=== PATIENT | male | born 1960 | race Caucasian/White ===

== ENCOUNTER 2019-03-21 17:25 | Emergency (ER) | payer MEDICAID ==
[2019-03-21] MEDS ORDERED: Proparacaine 0.5% Ophth Soln 15 ML Bottle EYERT ONE (17:57)
[2019-03-21 17:58] VITALS: BP 133/83
[2019-03-21] MEDS ORDERED: Diphtheria,Pertussis(Acell),Tetanus Vaccine 0.5 ML SDV IM ONE (18:18)
--- NOTE | 2019-03-21 18:24 | EDM.PDOC ---
ED HPI GENERAL MEDICAL PROBLEM - General Chief Complaint: Eye Problems Stated Complaint: DUST IN EYE Time Seen by Provider: 03/21/19 18:08 Source of Information: Reports: Patient, Family, RN Notes Reviewed History Limitations: Reports: No Limitations - History of Present Illness INITIAL COMMENTS - FREE TEXT/NARRATIVE: 58-year-old gentleman presents emergency department today with body to his right eye, he was out wood working earlier today did flush his eye without success no change in vision. Right Eye Pain Score (Numeric/FACES): 0 - Related Data Allergies Allergy/AdvReac Type Severity Reaction Status Date / Time No Known Allergies Allergy Verified 03/21/19 17:43 Home Meds: Home Meds NK [No Known Home Meds] 05/23/16 [History] Past Medical History Musculoskeletal History: Reports: Arthritis - Past Surgical History Head Surgeries/Procedures: Reports: None Musculoskeletal Surgical History: Reports: None Dermatological Surgical History: Reports: None Social & Family History - Tobacco Use Smoking Status *Q: Current Every Day Smoker Years of Tobacco use: 40 Packs/Tins Daily: 0.5 Used Tobacco, but Quit: No Second Hand Smoke Exposure: No - Caffeine Use Caffeine Use: Reports: Coffee, Soda - Alcohol Use Days Per Week of Alcohol Use: 7 Number of Drinks Per Day: 3 Total Drinks Per Week: 21 - Recreational Drug Use Recreational Drug Use: No - Living Situation & Occupation Living situation: Reports: with Significant Other Occupation: Employed ED ROS GENERAL - Review of Systems Review Of Systems: See Below HEENT: Reports: Eye Discharge, Eye Pain. Denies: Vision Change ED EXAM GENERAL W FULL EYE - Physical Exam Exam: See Below Exam Limited By: No Limitations General Appearance: Alert, WD/WN, No Apparent Distress Eye Exam: Right Eye: Conjunctival Injection, Corneal Abrasion, Foreign Body (No foreign body was identified), Left Eye: Normal Inspection, Bilateral Eye: EOMI, PERRL Visual Acuity (R) 20/: 40 Visual Acuity (L) 20/: 40 With Correction: No Eyelids: Bilateral: Normal Appearance Conjunctiva & Sclera: Right: Injected, Left: Normal Appearance Cornea Exam: Right: Corneal Abrasion, Left: Normal Appearance Extraocular Movements: Bilateral: Intact Pupils: Normal Accommodation Pupillary Size: Bilateral: 4 mm Pupillary Reaction: Bilateral: Brisk Anterior Chamber: Bilateral: Normal Appearance Course - Vital Signs Last Recorded V/S: Last Vital Signs Temp 95.6 F 03/21/19 17:58 Pulse 59 L 03/21/19 17:58 Resp 17 03/21/19 17:58 BP 133/83 03/21/19 17:58 Pulse Ox 97 03/21/19 17:58 - Orders/Labs/Meds Orders: Active Orders 24 hr Category Date Time Status Eye Irrigation [RC] ASDIRECTED Care 03/21/19 18:19 Ordered Vaccines to be Administered [RC] PER UNIT ROUTINE Care 03/21/19 18:19 Ordered Diphth,Pertuss(Acell),Tet Vac [Adacel] Med 03/21/19 18:18 Once 0.5 ml IM .ONCE ONE Meds: Medications Discontinued Medications Generic Name Dose Route Start Last Admin Trade Name Freq PRN Reason Stop Dose Admin Proparacaine HCl 1 ml 03/21/19 17:57 Proparacaine 0.5% Ophth Soln EYERT 03/21/19 17:58 ONETIME ONE Departure - Departure Time of Disposition: 18:23 Disposition: Home, Self-Care 01 Condition: Fair Clinical Impression: Corneal abrasion Qualifiers: Encounter type: initial encounter Laterality: right Qualified Code(s): S05.01XA - Injury of conjunctiva and corneal abrasion without foreign body, right eye, initial encounter - Discharge Information Referrals: PCP,None [Primary Care Provider] - Additional Instructions: Take full course of antibiotics, please follow-up with your eye care provider tomorrow for reevaluation - My Orders Last 24 Hours: My Active Orders 03/21/19 18:18 Diphth,Pertuss(Acell),Tet Vac [Adacel] 0.5 ml IM .ONCE ONE 03/21/19 18:19 Eye Irrigation [RC] ASDIRECTED Vaccines to be Administered [RC] PER UNIT ROUTINE - Assessment/Plan Last 24 Hours: My Active Orders 03/21/19 18:18 Diphth,Pertuss(Acell),Tet Vac [Adacel] 0.5 ml IM .ONCE ONE 03/21/19 18:19 Eye Irrigation [RC] ASDIRECTED Vaccines to be Administered [RC] PER UNIT ROUTINE Plan: Assessment Acuity = acute Site and laterality = corneal abrasion right eye Etiology = secondary to foreign body Manifestations = none Location of injury = Home Lab values = none Plan Placed on gentamicin ophthalmic drops, tetanus was updated plan follow-up with his eye care provider tomorrow did flush 500 mL of fluid This note was dictated using [employer] voice recognition software please call with any questions on syntax or grammar.
== END 2019-03-21 18:39 | disposition home or self-care (01) ==
LOC: JP.ED 17:25
DX: S05.01XA Injury of conjunctiva and corneal abrasion without foreign body, right eye, initial encounter (principal); Z23 Encounter for immunization; X58.XXXA Exposure to other specified factors, initial encounter
CPT/HCPCS: 90471; 90715; 99282; A9270

== ENCOUNTER 2019-04-17 22:18 | Emergency (ER) | payer MEDICAID ==
[2019-04-17] MEDS ORDERED: methylPREDNISolone Sodium Succinate 125 MG/2 ML SDV IVPUSH ONE (22:30)
[2019-04-17] MEDS ORDERED: EPINEPHrine 1 MG/ML SDV SUBCUT ONE ×2 (22:30→23:27)
[2019-04-17] MEDS ORDERED: Sodium Chloride 0.9% 1,000 ML IV SCH (22:30)
[2019-04-17] MEDS ORDERED: diphenhydrAMINE 50 MG/ML SDV IVPUSH ONE (22:31)
--- NOTE | 2019-04-17 22:49 | EDM.PDOC ---
ED HPI GENERAL MEDICAL PROBLEM - General Chief Complaint: Allergic Reaction Stated Complaint: HIVES Time Seen by Provider: 04/17/19 22:45 Source of Information: Reports: Patient History Limitations: Reports: No Limitations - History of Present Illness INITIAL COMMENTS - FREE TEXT/NARRATIVE: pt was stung by a bee this pm. He doesn,t think he has reacted thios severely in the past. He is covered with hives and he feels like his throat is tight. He is not real sob. Onset: Today, Sudden Duration: Hour(s): Location: Reports: Lower Extremity, Right, Other (pt was stung on his rt ankle. ) Associated Symptoms: Reports: No Other Symptoms denies pain Pain Score (Numeric/FACES): 0 - Related Data Allergies Allergy/AdvReac Type Severity Reaction Status Date / Time No Known Allergies Allergy Verified 04/17/19 22:39 Home Meds: Home Meds NK [No Known Home Meds] 05/23/16 [History] Past Medical History - Past Health History Medical/Surgical History: Denies Medical/Surgical History Musculoskeletal History: Reports: Arthritis - Past Surgical History Head Surgeries/Procedures: Reports: None Musculoskeletal Surgical History: Reports: None Dermatological Surgical History: Reports: None Social & Family History - Caffeine Use Caffeine Use: Reports: Coffee, Soda - Living Situation & Occupation Living situation: Reports: with Significant Other Occupation: Employed ED ROS ALLERGIC REACTION - Review of Systems Review Of Systems: See Below Constitutional: Reports: No Symptoms HEENT: Reports: No Symptoms Respiratory: Reports: No Symptoms Cardiovascular: Reports: No Symptoms Endocrine: Reports: No Symptoms GI/Abdominal: Reports: No Symptoms : Reports: No Symptoms Skin: Reports: Other (pt is covered with hives and he has no sob. ) ED EXAM GENERAL NO PERIP PULSE - Physical Exam Exam: See Below Text/Narrative:: pt arrived after having a bee sting to the rt ankle He is covered with hives but he is not hving any resp distress. Exam Limited By: No Limitations General Appearance: Alert, Anxious, Moderate Distress Ears: Normal TMs Nose: Normal Inspection Throat/Mouth: Normal Inspection Head: Atraumatic Neck: Normal Inspection Respiratory/Chest: No Respiratory Distress Cardiovascular: Regular Rate, Rhythm GI/Abdominal: Soft, Non-Tender (Male) Exam: Deferred Rectal (Males) Exam: Deferred Back Exam: Normal Inspection Extremities: Other (pt is covered with hives. ) Neurological: Alert, Oriented, Normal Cognition Course - Vital Signs Last Recorded V/S: Last Vital Signs Temp 35.4 C 04/17/19 22:47 Pulse 79 04/17/19 22:47 Resp 16 04/17/19 22:47 BP 126/66 04/17/19 22:47 Pulse Ox 93 L 04/17/19 22:47 - Orders/Labs/Meds Orders: Active Orders 24 hr Category Date Time Status Sodium Chloride 0.9% [Normal Saline] 1,000 ml Med 04/17/19 22:30 Active IV ASDIRECTED Medication Orders Sodium Chloride (Normal Saline) 1,000 mls @ 999 mls/hr IV ASDIRECTED PRIETO Last Admin: 04/17/19 22:42 Dose: 999 mls/hr Meds: Medications Generic Name Dose Route Start Last Admin Trade Name Freq PRN Reason Stop Dose Admin Sodium Chloride 1,000 mls @ 999 mls/hr 04/17/19 22:30 04/17/19 22:42 Normal Saline IV 999 mls/hr ASDIRECTED PRIETO Administration Discontinued Medications Generic Name Dose Route Start Last Admin Trade Name Freq PRN Reason Stop Dose Admin Diphenhydramine HCl 50 mg 04/17/19 22:31 04/17/19 22:42 Benadryl IVPUSH 04/17/19 22:32 50 mg ONETIME ONE Administration Epinephrine HCl 0.3 mg 04/17/19 22:30 04/17/19 22:41 Adrenalin SUBCUT 04/17/19 22:31 0.3 mg ONETIME ONE Administration Epinephrine HCl 0.3 mg 04/17/19 23:27 04/17/19 23:49 Adrenalin SUBCUT 04/17/19 23:28 0.3 mg ONETIME ONE Administration Methylprednisolone Sodium Succinate 125 mg 04/17/19 22:30 04/17/19 22:42 Solu-Medrol IVPUSH 04/17/19 22:31 125 mg ONETIME ONE Administration - Re-Assessments/Exams Free Text/Narrative Re-Assessment/Exam: 04/18/19 00:05 pt was given a epi .3 and this was repeated once. He was given solumedrol 125 iv. He was given benadryl 50 mg iv. 04/18/19 00:15 pt still has some hives. he is not sob. Will discharge on benadryl. Departure - Departure Time of Disposition: 00:18 Disposition: Home, Self-Care 01 Condition: Fair Clinical Impression: Allergic reaction to bee sting - Discharge Information Referrals: PCP,None [Primary Care Provider] - Forms: ED Department Discharge Care Plan Goals: epipen, benadryl 50mg q6h for the next 12-18 hours. - My Orders Last 24 Hours: My Active Orders 04/17/19 22:30 Sodium Chloride 0.9% [Normal Saline] 1,000 ml IV ASDIRECTED - Assessment/Plan Last 24 Hours: My Active Orders 04/17/19 22:30 Sodium Chloride 0.9% [Normal Saline] 1,000 ml IV ASDIRECTED
[2019-04-17 22:51] VITALS: BP 126/66; PULSE 79
== END 2019-04-18 00:29 | disposition home or self-care (01) ==
LOC: JP.ED 22:18
DX: T63.441A Toxic effect of venom of bees, accidental (unintentional), initial encounter (principal)
CPT/HCPCS: 96361; 96372; 96374; 96375; 99282; J0171; J1200; J2930; J7030

== ENCOUNTER 2019-04-18 13:27 | Emergency (ER) | payer MEDICAID ==
[2019-04-18 13:41] VITALS: BP 142/95; PULSE 77
[2019-04-18] MEDS ORDERED: methylPREDNISolone Sodium Succinate 125 MG/2 ML SDV IM ONE (14:03)
--- NOTE | 2019-04-18 14:08 | EDM.PDOC ---
ED HPI GENERAL MEDICAL PROBLEM - General Chief Complaint: Skin Complaint Stated Complaint: RASH ON LEGS AND ARMS Time Seen by Provider: 04/18/19 13:50 Source of Information: Reports: Patient History Limitations: Reports: No Limitations - History of Present Illness INITIAL COMMENTS - FREE TEXT/NARRATIVE: 58-year-old male seen last night for widespread hives, given a dose of Solu- Medrol, epinephrine and Benadryl. He did improve but they're back today. He had a similar episode 2 years ago and responded well to a Medrol Dosepak. No respiratory symptoms. Onset: Sudden Duration: Day(s): (2 days) Location: Reports: Generalized Improves with: Reports: Other (Benadryl Solu-Medrol and epi gave him some improvement over the past 12 hours) - Related Data Allergies Allergy/AdvReac Type Severity Reaction Status Date / Time No Known Allergies Allergy Verified 04/18/19 13:39 Home Meds: Home Meds NK [No Known Home Meds] 05/23/16 [History] Past Medical History - Past Health History Medical/Surgical History: Denies Medical/Surgical History Gastrointestinal History: Reports: None Musculoskeletal History: Reports: Arthritis - Past Surgical History Head Surgeries/Procedures: Reports: None Musculoskeletal Surgical History: Reports: None Dermatological Surgical History: Reports: None Social & Family History - Tobacco Use Smoking Status *Q: Current Every Day Smoker Years of Tobacco use: 35 Packs/Tins Daily: 0.5 Used Tobacco, but Quit: No Second Hand Smoke Exposure: No - Caffeine Use Caffeine Use: Reports: Coffee, Soda - Alcohol Use Days Per Week of Alcohol Use: 7 Number of Drinks Per Day: 6 Total Drinks Per Week: 42 - Recreational Drug Use Recreational Drug Use: Yes Recreational Drug Type: Reports: Marijuana/Hashish Recreational Drug Use Frequency: Monthly - Living Situation & Occupation Living situation: Reports: with Significant Other Occupation: Employed ED ROS GENERAL - Review of Systems Review Of Systems: See Below Constitutional: Denies: Fever, Chills HEENT: Reports: No Symptoms Respiratory: Denies: Shortness of Breath, Wheezing GI/Abdominal: Denies: Abdominal Pain, Nausea, Vomiting Skin: Reports: Urticaria Neurological: Denies: Headache ED EXAM, SKIN/RASH Exam: See Below Exam Limited By: No Limitations General Appearance: Alert, No Apparent Distress Throat/Mouth: Normal Inspection Head: Atraumatic Respiratory/Chest: No Respiratory Distress, Lungs Clear Skin: Other (Widespread irregular blanching erythematous lesions typical of urticaria) Course - Vital Signs Last Recorded V/S: Last Vital Signs Temp 96.9 F 04/18/19 13:42 Pulse 77 04/18/19 13:42 Resp 18 04/18/19 13:42 BP 142/95 H 04/18/19 13:42 Pulse Ox 97 04/18/19 13:42 - Orders/Labs/Meds Meds: Medications Discontinued Medications Generic Name Dose Route Start Last Admin Trade Name Damon PRN Reason Stop Dose Admin Methylprednisolone Sodium Succinate 125 mg 04/18/19 14:03 04/18/19 14:07 Solu-Medrol IM 04/18/19 14:04 125 mg ONETIME ONE Administration - Re-Assessments/Exams Free Text/Narrative Re-Assessment/Exam: 04/18/19 14:07 Another 125 mg of Solu-Medrol was given IM, and the patient was started on a Medrol Dosepak to take as directed. He can continue Benadryl. Recheck in 2-3 days if not improving satisfactorily. Departure - Departure Time of Disposition: 14:13 Disposition: Home, Self-Care 01 Condition: Good Clinical Impression: Urticaria - Discharge Information Instructions: Anuradha, [id number] Referrals: PCP,None [Primary Care Provider] - Forms: ED Department Discharge Care Plan Goals: Take Medrol Dosepak as directed and continue with 50 mg of Benadryl every 6 hours. Return in 48 hours if not improving, or return sooner if worsening such as breathing difficulties.
== END 2019-04-18 14:13 | disposition home or self-care (01) ==
LOC: JP.ED 13:27
DX: L50.9 Urticaria, unspecified (principal); F17.210 Nicotine dependence, cigarettes, uncomplicated
CPT/HCPCS: 96372; 99282; J2930

== ENCOUNTER 2019-12-04 09:38 | Day surgery (SDC) | payer MEDICAID ==
[2019-12-04] MEDS ORDERED: Dextrose 5%-Lactated Ringers 1,000 ML IV SCH (10:00)
[2019-12-04] MEDS ORDERED: Bupivacaine 0.5% 50 ML MDV ONE (11:01)
[2019-12-04] MEDS ORDERED: Lidocaine 1% with EPINEPHrine 1:100,000 50 ML MDV ONE (11:01)
[2019-12-04] MEDS ORDERED: Midazolam 1 MG/ML 2 ML SDV ONE (12:24)
[2019-12-04] MEDS ORDERED: Propofol 200 MG/20 ML SDV ONE ×2 (12:24→14:23)
[2019-12-04] MEDS ORDERED: fentaNYL 100 MCG/2 ML SDV ONE (12:24)
[2019-12-04] MEDS ORDERED: Lactated Ringers 1,000 ML ONE (14:17)
--- NOTE | 2019-12-04 16:02 | CRLCR ---
INDICATION: Status post thoracentesis TECHNIQUE: Chest 1 view. COMPARISON: None FINDINGS: Cardiovascular and mediastinum: Heart size and vasculature are normal in caliber and appearance. Mediastinum is within normal limits. Lungs and pleural space: Bibasilar atelectasis. No sign of infiltrate or mass. No sign of pleural effusion. No pneumothorax. Bones and soft tissues: No significant findings. IMPRESSION: No sizable pleural effusion. No evidence for pneumothorax. Bibasilar atelectasis. Dictated by Raymond Kaufman MD @ Dec 04 2019 4:00PM Signed by Dr. Raymond Kaufman @ Dec 04 2019 4:00PM
[2019-12-04 16:39] VITALS: BP 112/75; PULSE 83
--- NOTE | 2019-12-12 16:30 | OR ---
DATE OF PROCEDURE: 12/04/2019 SURGEON: Roel Simmons MD PREOPERATIVE DIAGNOSES: 1. Large right pleural effusion. 2. Diffuse lymphadenopathy suggestive of probable lymphoma. OPERATIVE PROCEDURES: 1. Ultrasound-guided right thoracentesis (35748). 2. Right cervical lymph node biopsies (posterior triangle of right neck) ([id number]). ANESTHESIA: Local plus IV sedation. INDICATION FOR PROCEDURE: The patient is referred today per Medical Oncology for thoracentesis, as well as lymph node biopsies, as he is presenting with picture suggestive of lymphoma. Plan is to proceed with thoracentesis, as well as lymph node biopsies. The most prominent lymph nodes are in the posterior triangle of the right neck. Risks of the procedure including bleeding, infection, pneumohemothorax, possible injury to spinal accessory nerve were all reviewed, and the patient wishes to proceed. DETAILS OF PROCEDURE: The patient was taken to the operating room and placed in a sitting position initially. Some IV sedation was administered. Ultrasound marked at that point the posterolateral aspect of the right chest which was then anesthetized with 1% lidocaine. The thoracentesis catheter was placed, and 1,400 mL of slightly green-tinged serous-appearing fluid was removed. This was sent for cytology and also full microbiologic and chemistry examination with cell count differential. Subsequent chest x-ray showed near complete evacuation of the pleural effusion without evident complications. The patient was then placed in a supine position with the head turned somewhat toward the left. The right neck was then prepped and draped over the area in the posterior triangle and the mid neck. The skin and underlying soft tissues were anesthetized with 1% lidocaine. A linear incision was made, and a total of 4 lymph nodes were then resected free from that area. These were fairly deep and were basically directly on top of the spinal accessory nerve as it coursed through that area. Care was taken to avoid injury to the nerve, which was evidently undisturbed at the conclusion of the procedure. No cautery was used in this case because of the proximity of the nerve. The vascular attachments coming in and out of the nodes were tied off with 4-0 Vicryl stitch as they were encountered. The incision was then closed with a deeper layer of 4-0 Vicryl stitch, a subdermal stitch of 4-0 Vicryl, and a subcuticular stitch of 5-0 Vicryl stitch. Steri-Strips were applied. The patient was taken to the recovery room in satisfactory condition. The patient has an appointment next Tuesday, i.e., in 6 days, with Medical Oncology. Roel Simmons MD /[id number]
== END 2019-12-04 16:55 | disposition home or self-care (01) ==
LOC: JP.SDS 09:38
PROVIDERS: ATTEND Surgery
DX: C81.91 Hodgkin lymphoma, unspecified, lymph nodes of head, face, and neck (principal); J90 Pleural effusion, not elsewhere classified
CPT/HCPCS: 32555; 38510; 71045; 82150; 82945; 83615; 83986; 84155; 84157; 87015; 87070; 87102; 87116; 87205; 87206; 89050; J2250; J2704; J3010; J3490; J7120; J7121

== ENCOUNTER 2019-12-14 07:01 | Day surgery (SDC) | payer MEDICAID ==
[~2019-12-14 07:01] MED LIST: Acetaminophen 500 MG Tab PO ONE
[2019-12-14] MEDS ORDERED: Propofol 200 MG/20 ML SDV ONE (07:15)
[2019-12-14] MEDS ORDERED: fentaNYL 100 MCG/2 ML SDV ONE (07:15)
[2019-12-14] MEDS ORDERED: Midazolam 1 MG/ML 2 ML SDV ONE (07:15)
[2019-12-14] MEDS ORDERED: Lidocaine 1% with EPINEPHrine 1:100,000 50 ML MDV ONE (07:20)
[2019-12-14] MEDS ORDERED: Bupivacaine 0.5% 50 ML MDV ONE (07:20)
[2019-12-14] MEDS ORDERED: Dextrose 5%-Lactated Ringers 1,000 ML IV SCH (07:30)
[2019-12-14] MEDS ORDERED: Linezolid 600 MG in Premix Bag 1 BAG IV ONE (08:15)
[2019-12-14 10:32] VITALS: BP 102/69; PULSE 79
--- NOTE | 2019-12-23 15:02 | OR ---
DATE OF PROCEDURE: 12/14/2019 SURGEON: Roel Simmons MD PREOPERATIVE DIAGNOSIS: Indication for central venous access. POSTOPERATIVE DIAGNOSIS: Indication for central venous access. OPERATIVE PROCEDURE: Insertion of Bard PowerPort via right subclavian vein approach ([id number]). ANESTHESIA: Local plus IV sedation. INDICATION FOR PROCEDURE: This is a 59-year-old male presenting with a new diagnosis of Hodgkin disease. He is receiving a port for central venous access to facilitate chemotherapy. Potential risks of the procedure including bleeding, infection, injury to the venous or pulmonary structures were all reviewed, and the patient wishes to proceed. DETAILS OF THE PROCEDURE: The patient was taken to the operating room and placed in the supine position. After IV sedation was administered, the upper chest and neck areas were prepped and draped. Initially, the left subclavian area was anesthetized with 1% lidocaine mixed with Marcaine. The left subclavian vein could be accessed and the wire cannulated, but could not be passed beyond the area around the subclavian and internal jugular vein junction. 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 Attention was then taken to the right side where the subclavian vein was cannulated and a guidewire easily manipulated from there into the superior vena cava. Some additional local was then injected and transverse infraclavicular incision was made, carried down through the skin and subcutaneous tissue and through the pectoralis major fascia. A pocket was then bluntly dissected behind the pectoralis major fascia and the Bard port positioned in that area and the catheter cut such that the tip would lie in the area of the superior vena cava and right atrial junction. Over the introducer and peel-away catheter, the Bard port catheter was then placed without difficulty. Good in and outflow through the port was confirmed, and it was flushed with heparinized saline. The incision was then closed with some 3-0 and 4-0 Vicryl stitch deep and 4-0 Vicryl subcuticular stitch. Dressing was applied. The patient was taken to the recovery room in satisfactory condition. There were no evident complications. Roel Simmons MD /[id number]
== END 2019-12-14 10:39 | disposition home or self-care (01) ==
LOC: JP.SDS 07:01
PROVIDERS: ATTEND Surgery
DX: C81.90 Hodgkin lymphoma, unspecified, unspecified site (principal)
CPT/HCPCS: A9270-GY; C1788; J1642; J2020; J2250; J2704; J3010; J3490; J7121

== ENCOUNTER 2020-02-11 20:52 | Emergency (ER) | payer MEDICAID ==
[2020-02-11] MEDS ORDERED: HYDROmorphone 1 MG/ML Syringe IVPUSH ONE (21:29)
--- NOTE | 2020-02-11 21:36 | EDM.PDOC ---
ED HPI GENERAL MEDICAL PROBLEM - General Chief Complaint: Back Pain or Injury Stated Complaint: WEAK/PAIN Time Seen by Provider: 02/11/20 21:10 Source of Information: Reports: Patient History Limitations: Reports: No Limitations - History of Present Illness INITIAL COMMENTS - FREE TEXT/NARRATIVE: 59-year-old male who is undergoing chemotherapy for I believe lymphoma, and he was warned after starting a new round of treatment that it may cause joint pain or muscle pain. Today at about 3 PM, 6 hours ago he started developing bilateral hip pain and it is become much more intense over the past 2 to 3 hours. It is not abdominal pain, it is deep joint pain in the groins, radiating into the sacrum and laterally into both hips. He does not have increased pain with standing or walking. No fevers or chills, no bruising or hypertension. Onset: Gradual Duration: Hour(s): (6 hours) Associated Symptoms: Reports: Malaise, Weakness. Denies: Chest Pain, Cough, Loss of Appetite, Shortness of Breath Lower Posterior Back Pain Score (Numeric/FACES): 7 - Related Data Allergies Allergy/AdvReac Type Severity Reaction Status Date / Time No Known Allergies Allergy Verified 12/17/19 08:38 Home Meds: Home Meds Albuterol Sulfate [Albuterol Sulfate Hfa] 1 inh IH Q4H PRN 12/04/19 [History] Ipratropium [Atrovent HFA Inh] 1 puff INH Q6H PRN 12/04/19 [History] Clobetasol [Clobetasol Propionate 0.05%] 30 gm TOP BID 02/11/20 [History] dexAMETHasone [Dexamethasone] 8 mg PO DAILY 02/11/20 [History] Past Medical History - Past Health History Medical/Surgical History: Denies Medical/Surgical History Respiratory History: Reports: SOB, Other (See Below) Other Respiratory History: pleural effusion Gastrointestinal History: Reports: None Musculoskeletal History: Reports: Arthritis Oncologic (Cancer) History: Reports: Lymphoma Dermatologic History: Reports: Other (See Below) Other Dermatologic History: Hives for 5 months unknown etiology, dry and itching skin, gone since last year. - Past Surgical History Head Surgeries/Procedures: Reports: None Respiratory Surgical History: Reports: Thoracentesis Social & Family History - Tobacco Use Smoking Status *Q: Current Some Day Smoker Years of Tobacco use: 40 Packs/Tins Daily: 0.5 - Caffeine Use Caffeine Use: Reports: Coffee - Alcohol Use Days Per Week of Alcohol Use: 7 Number of Drinks Per Day: 3 Total Drinks Per Week: 21 - Recreational Drug Use Recreational Drug Use: Yes Drug Use in Last 12 Months: Yes Recreational Drug Type: Reports: Marijuana/Hashish - Living Situation & Occupation Living situation: Reports: with Significant Other Occupation: Employed ED ROS GENERAL - Review of Systems Review Of Systems: See Below Constitutional: Denies: Fever, Chills Respiratory: Reports: No Symptoms. Denies: Shortness of Breath Cardiovascular: Denies: Chest Pain GI/Abdominal: Reports: Abdominal Pain (Pain does seem to radiate somewhat into the deep pelvis) Musculoskeletal: Reports: Muscle Pain, Other (Bilateral hip pain and low back pain) Skin: Reports: No Symptoms Neurological: Reports: No Symptoms ED EXAM, GENERAL - Physical Exam Exam: See Below Exam Limited By: No Limitations General Appearance: Alert, No Apparent Distress (Appears uncomfortable) Head: Atraumatic Neck: Normal Inspection, Supple Respiratory/Chest: No Respiratory Distress, Lungs Clear Cardiovascular: Regular Rate, Rhythm GI/Abdominal: Normal Bowel Sounds, Soft, Non-Tender, Other (I cannot reproduce tenderness with palpation of the deep lower abdomen or lower quadrants) Extremities: Other (Some mild increased discomfort with palpation of the deep groin bilaterally and internal and external rotation of the hips.) Neurological: Alert, Oriented Course - Vital Signs Last Recorded V/S: Last Vital Signs Temp 95.5 F L 02/11/20 21:05 Pulse 69 02/11/20 22:13 Resp 16 02/11/20 22:13 BP 105/67 02/11/20 22:13 Pulse Ox 100 02/11/20 22:13 - Orders/Labs/Meds Meds: Medications Discontinued Medications Generic Name Dose Route Start Last Admin Trade Name Freq PRN Reason Stop Dose Admin Heparin Sodium (Porcine) 500 units 02/11/20 22:14 02/11/20 22:18 Heparin Lock Flush 100 Units/Ml FLUSH 02/11/20 22:15 500 units ONETIME ONE Administration Heparin Sodium (Porcine) Confirm 02/11/20 22:15 Heparin Lock Flush 100 Units/Ml Administered 02/11/20 22:16 Dose 500 units .ROUTE .STK-MED ONE Hydromorphone HCl 1 mg 02/11/20 21:29 02/11/20 21:46 Dilaudid IVPUSH 02/11/20 21:30 1 mg ONETIME ONE Administration - Re-Assessments/Exams Free Text/Narrative Re-Assessment/Exam: 02/11/20 21:36 Patient was given 1 mg of IV Dilaudid. 02/11/20 22:10 Within 20 to 30 minutes after the IV Dilaudid, the patient was basically pain- free and felt "great". If this becomes a recurring problem with his chemotherapy he may need some oral pain medication to get him through. He is going to discuss this with his primary providers over the next 24 to 48 hours. Departure - Departure Time of Disposition: 22:23 Disposition: Home, Self-Care 01 Clinical Impression: Bilateral groin pain Low back pain Qualifiers: Chronicity: acute Back pain laterality: bilateral Sciatica presence: without sciatica Qualified Code(s): M54.5 - Low back pain - Discharge Information Instructions: Pain Without a Known Cause Referrals: Marisa Moreno MD [Primary Care Provider] - Forms: ED Department Discharge Care Plan Goals: Try to rest tonight and continue your regular medications. Discuss your pain with your primary providers, especially if it becomes a recurring problem. Sepsis Event Note - Evaluation Sepsis Screening Result: No Definite Risk - Focused Exam Vital Signs: Vital Signs Temp Pulse Resp BP Pulse Ox 02/11/20 22:13 69 16 105/67 100 02/11/20 21:05 95.5 F L 64 20 106/76 100 Date Exam was Performed: 02/12/20 Time Exam was Performed: 01:57
[2020-02-11 22:14] VITALS: BP 105/67; PULSE 69
== END 2020-02-11 22:23 | disposition home or self-care (01) ==
LOC: JP.ED 20:52
DX: M54.5 Low back pain (principal); R10.32 Left lower quadrant pain; R10.31 Right lower quadrant pain; F17.210 Nicotine dependence, cigarettes, uncomplicated
CPT/HCPCS: 96374; 99283; J1170; J1642

== ENCOUNTER 2020-02-12 09:57 | Emergency (ER) | payer MEDICAID ==
[2020-02-12] MEDS ORDERED: HYDROmorphone 1 MG/ML Syringe IVPUSH ONE (10:37)
--- NOTE | 2020-02-12 11:02 | EDM.PDOC ---
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 He was in the emergency department last night for increasing pain his chemotherapy regimen has been recently changed he is not on any chronic pain medication. He did call to the infusion center today he was referred to the emergency department for further evaluation. Lower Back Pain Score (Numeric/FACES): 8 - Related Data Allergies Allergy/AdvReac Type Severity Reaction Status Date / Time No Known Allergies Allergy Verified 02/12/20 10:14 Home Meds: Home Meds Albuterol Sulfate [Albuterol Sulfate Hfa] 1 inh IH Q4H PRN 12/04/19 [History] Ipratropium [Atrovent HFA Inh] 1 puff INH Q6H PRN 12/04/19 [History] Clobetasol [Clobetasol Propionate 0.05%] 30 gm TOP BID 02/11/20 [History] dexAMETHasone [Dexamethasone] 8 mg PO DAILY 02/11/20 [History] Past Medical History Respiratory History: Reports: SOB, Other (See Below) Other Respiratory History: pleural effusion Musculoskeletal History: Reports: Arthritis Oncologic (Cancer) History: Reports: Hodgkin's Lymphoma (Classic) Dermatologic History: Reports: Other (See Below) Other Dermatologic History: Hives for 5 months unknown etiology, dry and itching skin, gone since last year. - Past Surgical History Head Surgeries/Procedures: Reports: None Respiratory Surgical History: Reports: Thoracentesis Social & Family History - Tobacco Use Smoking Status *Q: Current Every Day Smoker Years of Tobacco use: 40 Packs/Tins Daily: 0.5 - Caffeine Use Caffeine Use: Reports: Coffee - Recreational Drug Use Recreational Drug Use: Yes Recreational Drug Type: Reports: Marijuana/Hashish - Living Situation & Occupation Living situation: Reports: with Significant Other Occupation: Employed ED ROS GENERAL - Review of Systems Review Of Systems: See Below Constitutional: Reports: No Symptoms HEENT: Reports: No Symptoms Respiratory: Reports: No Symptoms Cardiovascular: Reports: No Symptoms GI/Abdominal: Reports: No Symptoms Musculoskeletal: Reports: Back Pain, Joint Pain (Bilateral hip pain) ED EXAM, GENERAL - Physical Exam Exam: See Below Exam Limited By: No Limitations General Appearance: Alert, WD/WN, No Apparent Distress Respiratory/Chest: No Respiratory Distress, Lungs Clear, Normal Breath Sounds, No Accessory Muscle Use, Chest Non-Tender Cardiovascular: Regular Rate, Rhythm, No Murmur GI/Abdominal: Soft, Non-Tender Back Exam: Normal Inspection, Full Range of Motion, Vertebral Tenderness Course - Vital Signs Last Recorded V/S: Last Vital Signs Temp 97.8 F 02/12/20 10:11 Pulse 74 02/12/20 10:11 Resp 18 02/12/20 10:11 BP 117/66 02/12/20 10:11 Pulse Ox 100 02/12/20 10:11 - Orders/Labs/Meds Meds: Medications Discontinued Medications Generic Name Dose Route Start Last Admin Trade Name Freq PRN Reason Stop Dose Admin Hydromorphone HCl 1 mg 02/12/20 10:37 02/12/20 10:46 Dilaudid IVPUSH 02/12/20 10:38 1 mg ONETIME ONE Administration Departure - Departure Time of Disposition: 11:17 Disposition: Home, Self-Care 01 Condition: Poor Clinical Impression: Pain due to malignant neoplasm metastatic to bone - Discharge Information Instructions: Pain Medicine Instructions Referrals: Marisa Moreno MD [Primary Care Provider] - Forms: ED Department Discharge Additional Instructions: Please follow-up with your primary care provider Dr. Moreno for further evaluation and treatment plan for your chronic pain, use your hydrocodone 1 tablet up to 3 times a day as needed Sepsis Event Note - Evaluation Sepsis Screening Result: No Definite Risk - Focused Exam Vital Signs: Vital Signs Temp Pulse Resp BP Pulse Ox 02/12/20 10:11 97.8 F 74 18 117/66 100 02/12/20 10:08 97.8 F 74 18 117/66 100 Date Exam was Performed: 02/12/20 Time Exam was Performed: 11:14 - Assessment/Plan Plan: Assessment Acuity = acute Site and laterality = stage IVb classic Hodgkin's lymphoma with bone marrow involvement Etiology = unknown Manifestations = chronic bone pain Location of injury = Home Lab values = none Plan He had good relief with 1 mg Dilaudid via his port, call discussed case with his primary care provider at 1110 unfortunately he had been lost to follow-up and she stated she would happy to see him again after consultation with oncology she would provide chronic pain medication control for his cancer pain. In the meantime prescription written for hydrocodone 5/325 1 tab p.o. 3 times daily as needed total #30 provided This note was dictated using [employer] voice recognition software please call with any questions on syntax or grammar.
[2020-02-12 11:35] VITALS: BP 114/72; PULSE 70
== END 2020-02-12 11:40 | disposition home or self-care (01) ==
LOC: JP.ED 09:57
DX: G89.3 Neoplasm related pain (acute) (chronic) (principal); C79.52 Secondary malignant neoplasm of bone marrow; C81.90 Hodgkin lymphoma, unspecified, unspecified site; F17.210 Nicotine dependence, cigarettes, uncomplicated
CPT/HCPCS: 96374; 99283-25; J1170; J1642